=== PATIENT | male | born 2000 | race Caucasian/White ===

== ENCOUNTER 2020-06-18 11:01 | Emergency (ER) | payer SELFPAY ==
--- NOTE | 2020-06-18 11:55 | EDM.PDOC ---
ED HPI GENERAL MEDICAL PROBLEM - General Chief Complaint: Head Injury Stated Complaint: GOT KNOCKED OUT/CANT SEE OUT OF LEFT EYE Time Seen by Provider: 06/18/20 11:40 Source of Information: Reports: Patient, RN, RN Notes Reviewed History Limitations: Reports: No Limitations - History of Present Illness INITIAL COMMENTS - FREE TEXT/NARRATIVE: Samir is a 20 y/o male who presents to the ED via personal vehicle with complaints of head trauma while driving his tractor. The patient reports about 45 minutes ago he was driving his tractor over a bump in the field and struck his right lateral head on the side-window of his cab. He feels he may have lost consciousness for a few seconds following the head injury. He reports he noted a decrease in the vision in the blind spot of his left eye shortly following the injury. He characterizes the loss in vision as a white spot in his vision which has dissipated into mild blurriness. He denies any decrease in mentation, seizure-like activity, or projectile vomiting since the incident. He does attest to a headache for which he has not taken any analgesics. - Related Data Allergies Allergy/AdvReac Type Severity Reaction Status Date / Time No Known Allergies Allergy Verified 06/18/20 11:21 Home Meds: Home Meds . [No Known Home Meds] 06/18/20 [History] Past Medical History - Past Health History Medical/Surgical History: Denies Medical/Surgical History Social & Family History - Tobacco Use Tobacco Use Status *Q: Never Tobacco User - Caffeine Use Caffeine Use: Reports: Energy Drinks - Recreational Drug Use Recreational Drug Use: No ED ROS GENERAL - Review of Systems Review Of Systems: Comprehensive ROS is negative, except as noted in HPI. ED EXAM, HEAD INJURY - Physical Exam Exam: See Below Exam Limited By: No Limitations General Appearance: Alert, No Apparent Distress Head: Atraumatic, Normocephalic. No: Scalp Lacerations, Scalp Swelling, Scalp Abrasions, Scalp Ecchymosis, Scalp Hematoma, Active Bleeding, Ramirez's Sign, Facial Abrasions, Facial Ecchymosis, Facial Lacerations, Facial Swelling, Raccoon Eyes Nexus Criteria: No: Posterior, Midline Cervical Tenderness, Evidence of Intoxication, Altered Level of Consciousness, Focal Neurological Deficit, Painful Distraction Injuries Eyes: Bilateral Eye: EOMI, Normal Inspection, PERRL (3mm) Ears: Normal External Exam, Normal Canal, Hearing Grossly Normal, Normal TMs Nose: Normal Inspection, Normal Mucousa, No Blood Throat/Mouth: Normal Inspection, Normal Oropharynx, Normal Voice, No Airway Compromise Neck: Non-Tender, Full Range of Motion, Normal Alignment, Normal Inspection Respiratory: No Respiratory Distress, Lungs Clear, Normal Breath Sounds, No Accessory Muscle Use, Chest Non-Tender Cardiovascular: Normal Peripheral Pulses, Regular Rate, Rhythm, No Edema, No Gallop, No JVD, No Murmur, No Rub Back Exam: Normal Inspection, Full Range of Motion Extremities: Normal Inspection, Normal Range of Motion, Non-Tender, No Pedal Edema, Normal Capillary Refill Neurologic: shower room attendant II-XII nml As Tested, No Motor/Sensory Deficits, Alert, Normal Mood/Affect, Oriented x 3 Skin: Normal Color, Warm/Dry - Leslie Coma Score Best Eye Response (Traci): (4) Open Spontaneously Best Verbal Response (Traci): (5) Oriented Best Motor Response (Traci): (6) Obeys Commands Course - Vital Signs Last Recorded V/S: Last Vital Signs Temp 99.4 F 06/18/20 11:21 Pulse 64 06/18/20 11:21 Resp 18 06/18/20 11:21 BP 121/86 06/18/20 11:21 Pulse Ox 96 06/18/20 11:21 - Re-Assessments/Exams Free Text/Narrative Re-Assessment/Exam: 06/18/[address] head in the presence of head trauma, as well as watchful waiting. Patient's neurologic examination appropriate; no visual disturbances or pupillary changes. Equal strength, sensation WNL, and appropriate gait. Red flag signs and symptoms of increased ICP reviewed with patient, as well as supportive cares for headache. Patient verbalized understanding and agreement with the plan of care. Departure - Departure Time of Disposition: 11:50 Disposition: Home, Self-Care 01 Condition: Good Clinical Impression: Concussion Qualifiers: Encounter type: initial encounter Loss of consciousness presence/duration: with LOC of 30 min or less Qualified Code(s): S06.0X1A - Concussion with loss of consciousness of 30 minutes or less, initial encounter - Discharge Information *PRESCRIPTION DRUG MONITORING PROGRAM REVIEWED*: Not Applicable *COPY OF PRESCRIPTION DRUG MONITORING REPORT IN PATIENT ARTEM: Not Applicable Instructions: Concussion, Adult, [id number], Post-Concussion Syndrome, [id number] Forms: ED Department Discharge Additional Instructions: 1.) Continue to monitor for signs and symptoms of increased intracranial pressure, including pupil changes, projectile vomiting, seizure-like activity, change/difficulty with speech, or loss of vision. Return to the emergency room promptly should you experience any of these symptoms. 2.) You may take ibuprofen (Advil/Motrin) 400mg every six hours, as headache persists You may also take acetaminophen (Tylenol) 650mg every six hours, as pain persists. You may stagger these medications so you are receiving a dose every three hours. 3.) Drink plenty of water to stay hydrated. 4.) Avoid alcohol and recreational drugs. Sepsis Event Note (ED) - Evaluation Sepsis Screening Result: No Definite Risk
== END 2020-06-18 12:04 | disposition home or self-care (01) ==
LOC: DL.ED 11:01
DX: S06.0X1A Concussion with loss of consciousness of 30 minutes or less, initial encounter (principal); V84.5XXA Driver of special agricultural vehicle injured in nontraffic accident, initial encounter
CPT/HCPCS: 99283

== ENCOUNTER 2021-04-20 03:45 | Emergency (ER) | payer SELFPAY ==
[2021-04-20] MEDS: Sodium Chloride 0.9% 10 ML Syringe FLUSH PRN (04:24)
[2021-04-20 04:52] LABS: ANION GAP 13.7 mEq/L (7-13); CHLORIDE,CL 102 mmol/L (98-107); SODIUM,NA 140 mmol/L (136-145)
[2021-04-20 05:01] LABS: CORONAVIRUS COVID-19 NAA NEGATIVE (NEGATIVE)
[2021-04-20] MEDS: Morphine 2 MG/ML SYRINGE IVPUSH ONE (06:26)
== END 2021-04-20 06:26 ==
LOC: DL.ED 03:45
DX: I40.9 Acute myocarditis, unspecified (principal); R77.8 Other specified abnormalities of plasma proteins; Z20.822 Contact with and (suspected) exposure to COVID-19
CPT/HCPCS: 0240U; 36415; 71045; 80053; 80307; 82150; 82550; 83605; 83690; 84443; 84484; 85025; 86140; 93005; 99285

== ENCOUNTER 2021-06-16 06:43 | Emergency (ER) | payer BC ==
[2021-06-16] MEDS ORDERED: LORazepam 2 MG/ML SDV IVPUSH ONE (07:26)
[2021-06-16 07:51] LABS: ANION GAP 13.9 mEq/L (7-13); CHLORIDE,CL 105 mmol/L (98-107); SODIUM,NA 142 mmol/L (136-145)
== END 2021-06-16 10:07 | disposition home or self-care (01) ==
LOC: DL.ED 06:43
DX: R07.9 Chest pain, unspecified (principal); Z72.0 Tobacco use
CPT/HCPCS: 36415; 71045; 80053; 80179; 80307; 82550; 83605; 84484; 85025; 86140; 93005; 93010; 96374; 99284; 99285-25; J2060